=== PATIENT | female | born 1955 | race Hispanic/Latino ===

== ENCOUNTER 2021-06-09 10:12 | Emergency (ER) | payer BC ==
[2021-06-09] MEDS ORDERED: BENZONATATE 100 MG CAP PO ONE ×2 (11:24→13:00)
[2021-06-09] MEDS ORDERED: HYDROcodone/ACETAMINOPHEN 5-325 MG TAB PO ONE (11:24)
--- NOTE | 2021-06-09 11:30 | Emergency Department Report ---
HPI - General Chief Complaint: Dyspnea/Respdistress Time Seen by Provider: 06/09/21 11:10 - HPI HPI: Room 25 The patient is a 65-year-old female present with chief complaint of cough and sore throat. Patient states for the past 2 days she has had sinus pressure and a sore throat. Patient is to rhinorrhea which began yesterday. Patient states she has had a cough has been nonproductive for the past 2 days. Patient complains of chest aching secondary to the coughing. The patient states she has been vaccinated against COVID receiving 3 doses of her Moderna vaccine with the third dose being over 1 month ago ED Past Medical Hx - Past Medical History Hx Hypertension: Yes Hx Diabetes: Yes Hx Renal Disease: Yes (Stage IV kidney disease) Additional medical history: Hypercholesterolemia - Surgical History Additional Surgical History: Hysterectomy, , right rotator cuff surgery - Family History Family history: no significant - Social History Smoking Status: Former Smoker (None x10 years) Substance Use Type: None (Denies illicit drug use) - Medications Home Medications: Home Medications Medication Instructions Recorded Confirmed Last Taken Type Albuterol Mdi (or & Nicu Only) 2 puff IH QID PRN #8.5 gram 06/09/21 Unknown Rx [ProAir HFA Inhaler] Amoxicillin/Potassium Clav 1 each PO BID #14 06/09/21 Unknown Rx [Augmentin 875-125 Tablet] Benzonatate [Tessalon Perles] 100 mg PO Q8HR #30 cap 06/09/21 Unknown Rx traMADoL [Ultram] 50 mg PO Q6HR PRN #10 tablet 06/09/21 Unknown Rx ED Review of Systems ROS: Stated complaint: CHEST/THROAT PAIN/COUGHING Other details as noted in HPI Constitutional: fever (Subjective) Eyes: denies: eye pain ENT: throat pain Respiratory: cough Cardiovascular: as per HPI Endocrine: no symptoms reported Gastrointestinal: abdominal pain (Abdominal cramping with diarrhea), diarrhea Genitourinary: denies: dysuria Musculoskeletal: myalgia Neurological: denies: headache Physical Exam - Physical Exam Vital Signs: Vital Signs 06/09/21 10:27 Temperature 97.9 F Pulse Rate 84 Respiratory 18 Rate Blood Pressure 135/81 [Right] O2 Sat by Pulse 98 Oximetry Physical Exam: GENERAL: The patient is well-developed well-nourished female lying on stretcher not appearing to be in acute distress. [] HEENT: Normocephalic. Atraumatic. Extraocular motions are intact. Trace injection of the pharynx without exudate. Uvula midline NECK: Supple. Trachea midline CHEST/LUNGS: Clear to auscultation. There is no respiratory distress noted. Occasional cough HEART/CARDIOVASCULAR: Regular. There is no tachycardia. There is no gallop rub or murmur. ABDOMEN: Abdomen is soft, nontender. Patient has normal bowel sounds. There is no abdominal distention. SKIN: There is no rash. There is no edema. There is no diaphoresis. NEURO: The patient is awake, alert, and oriented. The patient is cooperative. The patient has no focal neurologic deficits. The patient has normal speech. GCS 15 MUSCULOSKELETAL: There is no evidence of acute injury. ED Course Vital Signs 06/09/21 10:27 Temperature 97.9 F Pulse Rate 84 Respiratory 18 Rate Blood Pressure 135/81 [Right] O2 Sat by Pulse 98 Oximetry - Consultations Consultation #1: 06/09/21 13:09 Nephrology paged 06/09/21 13:[address] Cason-no need to admit patient for current potassium and creatinine. Patient's last creatinine in April 2021 was 2.78. Advised patient to continue taking her Lokelma if she does not have any she may come to the office tomorrow to mixing picker tender samples. Can give patient Kayexalate in the ED and will schedule a follow-up appointment in the office for recheck of labs. ED Medical Decision Making - Lab Data Result diagrams: 06/09/21 11:29 06/09/21 11:29 Laboratory Tests 06/09/21 06/09/21 11:29 11:29 WBC 8.3 RBC 3.72 Hgb 11.0 Hct 34.5 MCV 93 MCH 30 MCHC 32 RDW 13.5 Plt Count 240 Lymph % (Auto) 16.2 [place] % (Auto) 9.4 H Eos % (Auto) 2.3 Baso % (Auto) 0.8 Lymph # (Auto) 1.3 [place] # (Auto) 0.8 Eos # (Auto) 0.2 Baso # (Auto) 0.1 Seg Neutrophils % 71.3 H Seg Neutrophils # 5.9 Sodium 143 Potassium 5.6 H Chloride 111.6 H Carbon Dioxide 20 L Anion Gap 17 BUN 45 H Creatinine 3.2 H Estimated GFR 15 BUN/Creatinine Ratio 14 Glucose 98 Calcium 9.1 Total Creatine Kinase 74 CK-MB (CK-2) 2.8 CK-MB (CK-2) Rel Index 3.7 Troponin T < 0.010 - EKG Data -: EKG Interpreted by Me EKG shows normal: sinus rhythm Rate: normal - EKG Data When compared to previous EKG there are: previous EKG unavailable Interpretation: other (No ischemic changes seen) - Radiology Data Radiology results: report reviewed (Chest x-ray), image reviewed (Chest x-ray) interpreted by me: Chest x-ray-no definite focal infiltrates, no pneumothorax [facility] [address] [place] [address] XRay Report Signed Patient: YOLANDA GONZALEZ MR#: [id number] 6 : 1955 Acct:[id number] Age/Sex: 65 / F ADM Date: 06/09/21 Loc: ED Attending Dr: Ordering Physician: GINETTE SAUER MD Date of Service: 06/09/21 Procedure(s): XR chest routine 2V Accession Number(s): [id number] cc: GINETTE SAUER MD Fluoro Time In Minutes: CHEST 2 VIEWS INDICATION / CLINICAL INFORMATION: Dry cough and congestion. FINDINGS: SUPPORT DEVICES: None. HEART / MEDIASTINUM: No significant abnormality. LUNGS / PLEURA: No significant pulmonary or pleural abnormality. No pneumothorax. ADDITIONAL FINDINGS: No significant additional findings. IMPRESSION: 1. No acute findings. Signer Name: Efrain Martinez MD Signed: 06/09/2021 12:07 PM Workstation Name: [id number] Transcribed By: BC Dictated By: Efrain Martinez MD Electronically Authenticated By: Efrain Martinez MD Signed Date/Time: 06/09/21 120 DD/ 06 TD/TT: - Differential Diagnosis URI, pneumonia Critical care attestation.: If time is entered above; I have spent that time in minutes in the direct care of this critically ill patient, excluding procedure time. ED Disposition Clinical Impression: URI (upper respiratory infection), Renal insufficiency, Hyperkalemia Disposition: 01 HOME / SELF CARE / HOMELESS Is pt being admited?: No Does the pt Need Aspirin: No Condition: Stable Instructions: Hyperkalemia, [id number] Additional Instructions: Go to your superintendent production office tomorrow to mixing picker tender your medication Lokelma for your potassium. Return to the emergency department should you develop worsening symptoms, inability to tolerate food or liquids, high fever or any other concerns Prescriptions: Amoxicillin/Potassium Clav [Augmentin 875-125 Tablet] 1 each PO BID #14 Albuterol Mdi (or & Nicu Only) [ProAir HFA Inhaler] 2 puff IH QID PRN #8.5 gram PRN Reason: Shortness Of Breath Benzonatate [Tessalon Perles] 100 mg PO Q8HR #30 cap traMADoL [Ultram] 50 mg PO Q6HR PRN #10 tablet PRN Reason: Pain Referrals: ROMÁN APONTE MD [Primary Care Provider] - 3-5 Days JAVID LANGE MD [Staff Physician] - YRIS (Go to your superintendent production office tomorrow to receive the medication Lokelma) Time of Disposition: 13:53
[2021-06-09 12:05] LABS: Basophils # (Auto) 0.1 K/mm3 (0.0-0.1); Basophils % (Auto) 0.8 % (0.0-1.8); Eosinophils # (Auto) 0.2 K/mm3 (0.0-0.4); Eosinophils % (Auto) 2.3 % (0.0-4.3); Hematocrit 34.5 % (30.3-42.9); Lymphocytes # (Auto) 1.3 K/mm3 (1.2-5.4); Lymphocytes % (Auto) 16.2 % (13.4-35.0); Mean Corpuscular HGB Conc 32 % (30-34); Mean Corpuscular Volume 93 fl (79-97); Monocytes # (Auto) 0.8 K/mm3 (0.0-0.8); Monocytes % (Auto) 9.4 % (0.0-7.3); Platelet Count 240 K/mm3 (140-440); Red Blood Count 3.72 M/mm3 (3.65-5.03); Red Cell Distribution Width 13.5 % (13.2-15.2)
--- NOTE | 2021-06-09 12:12 | XRay Report ---
CHEST 2 VIEWS INDICATION / CLINICAL INFORMATION: Dry cough and congestion. FINDINGS: SUPPORT DEVICES: None. HEART / MEDIASTINUM: No significant abnormality. LUNGS / PLEURA: No significant pulmonary or pleural abnormality. No pneumothorax. ADDITIONAL FINDINGS: No significant additional findings. IMPRESSION: 1. No acute findings. Signer Name: Efrain Martinez MD Signed: 06/09/2021 12:07 PM Workstation Name: [id number]
[2021-06-09 12:22] LABS: BUN/Creatinine Ratio 14; Blood Urea Nitrogen 45 mg/dL (7-17); Calcium 9.1 mg/dL (8.4-10.2); Creatine Kinase MB 2.8 ng/mL (0.0-4.0); Hemolysis Index 8
[2021-06-09] MEDS ORDERED: SODIUM POLYSTYRENE 15 GM/60 ML ORAL LIQD PO ONE (12:39)
[2021-06-09 13:10] VITALS: BP 110/58
--- NOTE | 2021-06-10 09:14 | Electrocardiograph Report ---
[facility] Test Date: 2021-06-09 Test Time: 11:32:36 Pat Name: YOLANDA GONZALEZ Department: Room: Gender: F Credit Rating Checker: ZAC : 1955 Requested By: GINETTE SAUER Order Number: [id number] Reading MD: Abi Kauffman Measurements Intervals [place] Rate: 80 P: -43 CT: 168 QRS: 45 QRSD: 89 T: 73 QT: 365 QTc: 422 Interpretive Statements Sinus rhythm Consider intermittent atrial pacing Low voltage, precordial leads No previous ECG available for comparison Electronically Signed On 06-10-2021 9:13:59 EDT by Abi Kauffman
== END 2021-06-09 17:05 | disposition home or self-care (01) ==
LOC: ED 10:12
DX: J06.9 Acute upper respiratory infection, unspecified (principal); N28.9 Disorder of kidney and ureter, unspecified; E87.5 Hyperkalemia; I10 Essential (primary) hypertension; E11.9 Type 2 diabetes mellitus without complications; Z79.899 Other long term (current) drug therapy; Z98.890 Other specified postprocedural states; Z87.891 Personal history of nicotine dependence
CPT/HCPCS: 36415; 71046; 80048; 82550; 82553; 84484; 85025; 87040; 87400; 93005; 99284